=== PATIENT | male | born 1975 | race African-American/Black ===

== ENCOUNTER 2019-03-06 12:52 | Emergency (ER) | payer SELFPAY ==
[~2019-03-06] VITALS: Ht 182.9 cm; Wt 97.0 kg
[2019-03-06 13:15] VITALS: BP 168/89
== END 2019-03-06 17:36 | disposition left against medical advice (07) ==
LOC: ER 12:52
DX: M54.5 Low back pain (principal); Z53.21 Procedure and treatment not carried out due to patient leaving prior to being seen by health care provider